=== PATIENT | female | born 1960 | race Caucasian/White ===

== ENCOUNTER → 2018-12-16 | Outpatient (CLI) | payer BC ==
[~2018-12-16] MED LIST: ACETAMINOPHEN W1 TA6 PO; EXCEDRIN TENSION HA PO
== END ==
LOC: MC.RAD 11-25 14:15
DX: Z12.31 Encounter for screening mammogram for malignant neoplasm of breast (principal)

== ENCOUNTER 2022-06-30 13:40 | Observation (INO) | payer BC ==
[~2022-06-30] VITALS: Ht 162.6 cm; Wt 52.3 kg
[2022-06-30] MEDS ORDERED: LIPITOR20 MG PO (15:31)
[2022-06-30 15:40] VITALS: BP 156/77; PULSE 69; TEMP 98.1
--- NOTE | 2022-06-30 17:12 | NUR ---
Pt admitted and heimlich valve placed by Dr Chauhan. Pt tolerated with no issues or complaints. Pt reports that she already feels better and is not having pain. Pt was oriented to her room and educated on room service upon arrival.
[2022-06-30 19:34] VITALS: BP 129/58; PULSE 76; TEMP 98.1
--- NOTE | 2022-06-30 19:57 | NUR ---
pt resting in bed. denies pain and shortness of breath. assessment complete. no needs at this time. call light in reach.
[2022-06-30 23:41] VITALS: BP 133/58; PULSE 63; TEMP 97.9
[2022-07-01 03:41] VITALS: BP 129/53; PULSE 73; TEMP 98.2
--- NOTE | 2022-07-01 05:54 | NUR ---
pt had uneventful night. complains of headache this morning from having to sleep on her back, otherwise no complaints. call light in reach.
[2022-07-01 07:34] VITALS: BP 136/60; PULSE 63; TEMP 99
--- NOTE | 2022-07-01 07:36 | NUR ---
PATIENT ALERT AND ORIENTED X4. VSS. PATIENT HERE FOR LEFT PNEUMO. HEIMLICH VALVE IN PLACE. PATIENT REPORTS NO PAIN, NO COMPLAINTS. PATIENT RESTING IN BED. PATIENT TO DISCHARGE TODAY. CALL LIGHT WITHIN REACH.
--- NOTE | 2022-07-01 08:15 | NUR ---
DISCHARGE INSTRUCTIONS PROVIDED. PATIENT EDUCATION GIVEN. IV DC'D. FOLLOW UP APPOINTMENT AND RADIOLOGY APPT DISCUSSED. PATIENT TO DC WITH HEIMLICH VALVE. INSTRUCTIONS PROVIDED ON VALVE. PATIENT DENIES ANY QUESTIONS OR CONCERNS. PATIENT ESCORTED OUT VIA WHEELCHAIR.
== END 2022-07-01 08:10 | disposition home or self-care (01) ==
LOC: COL.RAD 13:40 → SURG 15:22
PROVIDERS: ADMIT Surgery
DX: J93.83 Other pneumothorax (principal)
CPT/HCPCS: G0378; Q9967

== ENCOUNTER 2022-08-06 08:28 | Outpatient (CLI) | payer BC ==
[~2022-08-06] VITALS: Ht 162.6 cm; Wt 54.4 kg
[~2022-08-06 08:28] MED LIST changes: +LIPITOR20 MG PO
[2022-08-06 09:05] VITALS: BP 137/60; PULSE 58; TEMP 97.5
--- NOTE | 2022-08-06 09:06 | NUR ---
PATIENT AMBULATED TO BAY 1. ALERT AND ORIENTED X4. CONSENT SIGNED. PATIENT COMPLAINTS OF HAVING SHORTNESS OF BREATH, SPO2 97%. BREATHING IS UNLABORED AT THIS TIME. LAYING ON COT AT THIS TIME. NO CONCERNS NOTED. CALL LIGHT IN REACH. AT BEDSIDE.
--- NOTE | 2022-08-06 10:55 | NUR ---
1055 SITS IN CHAIR IN ROOM. HERE. RESP UNLABORED. DENIES PAIN. 1100 DISCHARGE INSTRUCTIONS REVIEWED. PATIENT VERBALIZES UNDERSTANDING. COPY PROVIDED IN DISCHARGE FOLDER 1104 DISCHARGED AMBULATORY. ACCOMPANIED BY
== END 2022-08-06 11:05 ==
LOC: SDCO 08:28
DX: J93.11 Primary spontaneous pneumothorax (principal)